=== PATIENT | male | born 1975 | race Caucasian/White ===

== ENCOUNTER 2025-03-09 11:44 | Inpatient (IN) ==
[2025-03-09] MEDS ORDERED: IOPAMIDOL 100 ML BOTTLE IV ONE (11:45)
[2025-03-09] MEDS: LEVALBUTEROL 1.25 MG/3 ML AMPUL.NEB NEB ONE (14:30)
[2025-03-09 14:41] LABS: VBG HCO3 31.2 mmol/L (24.0-28.0); VBG PCO2 49.7 mmHg (41.0-51.0); VBG PH 7.42 U (7.32-7.42); VBG PO2 28.3 mmHg (25.0-40.0)
[2025-03-09 14:49] LABS: Basophils # (Auto) 0.03 K/mcL (0.00-0.30); Basophils % (Auto) 0.3 % (0.0-2.0); Eosinophils # (Auto) 0.17 K/mcL (0.00-0.70); Eosinophils % (Auto) 1.6 % (0.0-7.0); Hematocrit 42.4 % (40.1-51.0); Hemoglobin 14.2 g/dL (13.7-17.5); Lymphocytes # (Auto) 1.29 K/mcL (1.50-4.80); Lymphocytes % (Auto) 12.3 % (15.5-49.0); Mean Corpuscular HGB Conc 33.5 g/dL (31.0-36.0); Monocytes # (Auto) 1.27 K/mcL (0.10-0.90); Monocytes % (Auto) 12.1 % (1.0-12.0); Neutrophils % (Auto) 73.0 % (38.0-78.0); Platelet Count 294 K/mcL (140-440); RBC 4.72 M/mcL (4.63-6.08); WBC 10.5 K/mcL (4.5-11.0)
[2025-03-09 15:05] LABS: ALT/SGPT 166 U/L (<40); AST/SGOT 95 U/L (<40); Albumin 3.9 gm/dL (3.2-5.2); Albumin/Globulin Ratio 1.3 (1.0-2.3); Alkaline Phosphatase 429 U/L (39-117); Anion Gap 7.0 (8.0-16.0); Bilirubin,Total 0.3 mg/dL (0.1-1.0); Blood Urea Nitrogen 12 mg/dL (6-20); Calcium 9.0 mg/dL (8.6-10.4); Carbon Dioxide 30 mmol/L (22-30); Chloride 93 mmol/L (96-108); Globulin 3.1 gm/dL (2.2-3.7); Glucose 99 mg/dL (70-105); Potassium 4.5 mmol/L (3.3-5.1); Sodium 130 mmol/L (133-145)
[2025-03-09] MEDS: CEFEPIME 2 GM VIAL IV ONE (16:42)
[2025-03-09] MEDS ORDERED: VANCOMYCIN 2,000 MG in 0.9 % SODIUM CHLORIDE 500 ML IV ONE (17:02)
[2025-03-09 17:34] LABS: C-Reactive Protein 5.76 mg/dL (0.03-0.80)
[2025-03-09] MEDS: VANCOMYCIN 1,750 MG in 0.9 % SODIUM CHLORIDE 500 ML IV ONE (17:37)
[2025-03-09] MEDS ORDERED: DEXTROSE 50% 50 ML VIAL IV PRN (18:59)
[2025-03-09] MEDS ORDERED: VANCOMYCIN PER PHARMACY IV SCH (18:59)
[2025-03-09] MEDS ORDERED: POTASSIUM CHLORIDE 40 MEQ in DEXTROSE 5% IN WATER 500 ML IV PRN (18:59)
[2025-03-09] MEDS ORDERED: POTASSIUM CHLORIDE 20 MEQ TABLET PO PRN ×2 (18:59)
[2025-03-09] MEDS ORDERED: METOCLOPRAMIDE 10 MG/2 ML VIAL IV PRN (18:59)
[2025-03-09] MEDS ORDERED: POLYETHYLENE GLYCOL 3350 17 GM PACKET PO PRN (18:59)
[2025-03-09] MEDS ORDERED: MAGNESIUM SULFATE 2 GM/50 ML BAG IV PRN (18:59)
[2025-03-09] MEDS ORDERED: DEXTROSE 31 GM ORAL.SUSP PO PRN (18:59)
[2025-03-09] MEDS ORDERED: SENNOSIDES 1 TABLET PO PRN (18:59)
[2025-03-09] MEDS: 0.9 % SODIUM CHLORIDE 1,000 ML IV ONE (20:23)
[2025-03-09] MEDS: INSULIN LISPRO 1 UNIT/0.01 ML UNIT SQ SCH (20:32)
[2025-03-09] MEDS: 0.9 % SODIUM CHLORIDE 10 ML SYRINGE IV SCH (21:57)
[2025-03-09] MEDS: CEFEPIME 2 GM VIAL IV SCH (21:57)
[2025-03-10] MEDS: IPRATROPIUM/ALBUTEROL 3 ML AMPUL.NEB NEB PRN (01:11)
[2025-03-10] MEDS: ONDANSETRON 4 MG/2 ML VIAL IV PRN (04:44)
[2025-03-10 05:11] LABS: Barbiturate Screen,Urine None detected; Benzodiazepines Screen,Urine None detected; Fentanyl, Urine Screen None Detected; Opiate Screen,Urine None detected; Oxycodone, Urine Screen None detected; Phencyclidine Screen,Urine None detected
[2025-03-10 06:20] LABS: Basophils # (Auto) 0.01 K/mcL (0.00-0.30); Basophils % (Auto) 0.1 % (0.0-2.0); Eosinophils # (Auto) 0 K/mcL (0.00-0.70); Eosinophils % (Auto) 0 % (0.0-7.0); Hematocrit 38.5 % (40.1-51.0); Hemoglobin 13.0 g/dL (13.7-17.5); Lymphocytes # (Auto) 0.88 K/mcL (1.50-4.80); Lymphocytes % (Auto) 9.5 % (15.5-49.0); Mean Corpuscular HGB Conc 33.8 g/dL (31.0-36.0); Monocytes # (Auto) 0.80 K/mcL (0.10-0.90); Monocytes % (Auto) 8.6 % (1.0-12.0); Neutrophils % (Auto) 80.9 % (38.0-78.0); Platelet Count 297 K/mcL (140-440); RBC 4.27 M/mcL (4.63-6.08); WBC 9.3 K/mcL (4.5-11.0)
[2025-03-10 06:35] LABS: ALT/SGPT 123 U/L (<40); AST/SGOT 50 U/L (<40); Albumin 3.7 gm/dL (3.2-5.2); Albumin/Globulin Ratio 1.3 (1.0-2.3); Alkaline Phosphatase 336 U/L (39-117); Anion Gap 7.0 (8.0-16.0); Bilirubin,Direct < 0.2 mg/dL (0-0.3); Bilirubin,Total 0.3 mg/dL (0.1-1.0); Blood Urea Nitrogen 13 mg/dL (6-20); Calcium 8.7 mg/dL (8.6-10.4); Carbon Dioxide 26 mmol/L (22-30); Chloride 96 mmol/L (96-108); Globulin 2.8 gm/dL (2.2-3.7); Glucose 183 mg/dL (70-105); Phosphorous 3.1 mg/dL (2.5-4.5); Potassium 4.5 mmol/L (3.3-5.1); Sodium 129 mmol/L (133-145); Triglycerides 40 mg/dL (<150); Uric Acid 3.3 mg/dL (2.5-8.0)
[2025-03-10] MEDS: VANCOMYCIN 1,750 MG in 0.9 % SODIUM CHLORIDE 500 ML IV SCH (07:39)
[2025-03-10] MEDS: SODIUM CHLORIDE 1 GM TABLET PO SCH (09:24)
[2025-03-10 09:40] LABS: Thyroid Stimulating Hormone 0.73 uIU/mL (0.27-5.01)
[2025-03-10] MEDS: INSULIN GLARGINE, HUMAN 1 UNIT/0.01 ML SQ ONE (10:00)
[2025-03-10] MEDS: ACETAMINOPHEN 325 MG TABLET PO PRN (16:04)
[2025-03-10] MEDS: IPRATROPIUM/ALBUTEROL 3 ML AMPUL.NEB NEB SCH (17:35)
[2025-03-10] MEDS: INSULIN GLARGINE, HUMAN 1 UNIT/0.01 ML SQ SCH ×2 (20:11)
[2025-03-10] MEDS: ARIPIPRAZOLE 5 MG TABLET PO SCH (21:10)
[2025-03-10] MEDS: IPRATROPIUM 2.5 ML AMPUL.NEB NEB PRN (21:29)
[2025-03-10] MEDS: LEVALBUTEROL 1.25 MG/3 ML AMPUL.NEB NEB PRN (21:30)
[2025-03-11] MEDS: COSYNTROPIN 0.25 MG VIAL IV ONE (05:00)
[2025-03-11 05:04] VITALS: TEMP 98.4; O2SAT 96
[2025-03-11 06:07] LABS: ALT/SGPT 93 U/L (<40); AST/SGOT 35 U/L (<40); Albumin 3.5 gm/dL (3.2-5.2); Albumin/Globulin Ratio 1.3 (1.0-2.3); Alkaline Phosphatase 264 U/L (39-117); Anion Gap 8.0 (8.0-16.0); Bilirubin,Direct < 0.2 mg/dL (0-0.3); Bilirubin,Total 0.2 mg/dL (0.1-1.0); Blood Urea Nitrogen 11 mg/dL (6-20); Calcium 8.6 mg/dL (8.6-10.4); Carbon Dioxide 28 mmol/L (22-30); Chloride 97 mmol/L (96-108); Globulin 2.6 gm/dL (2.2-3.7); Glucose 105 mg/dL (70-105); Phosphorous 3.4 mg/dL (2.5-4.5); Potassium 4.4 mmol/L (3.3-5.1); Sodium 133 mmol/L (133-145); Triglycerides 43 mg/dL (<150); Uric Acid 3.9 mg/dL (2.5-8.0)
[2025-03-11] MEDS ORDERED: INSULIN GLARGINE, HUMAN 1 UNIT/0.01 ML SQ SCH ×2 (09:00)
[2025-03-21 06:05] LABS: Renin Activity,Plasma-SO 0.12 ng/mL/h (0.25-5.82)
== END 2025-03-11 06:50 | disposition left against medical advice (07) | DRG 640 ==
LOC: ED 11:44 → MEDSUR 18:45
PROVIDERS: ADMIT Internal Medicine; ATTEND Internal Medicine